=== PATIENT | male | born 1975 | race Caucasian/White ===

== ENCOUNTER 2016-09-15 12:03 | Emergency (ER) | payer MEDICAID ==
[~2016-09-15] VITALS: Ht 165.1 cm; Wt 68.0 kg
[2016-09-15] MEDS ORDERED: TETRACAINE HCL/PF 0.5% UD 2 ML BOTTLE ONE (12:29)
[2016-09-15] MEDS ORDERED: FLUORESCEIN SODIUM OPHTH 1 EA STRIP ONE (12:29)
[2016-09-15] MEDS ORDERED: SOD BORATE/BORIC AC/H2O/NACL 118 ML BOTTLE ONE (12:32)
[2016-09-15] MEDS ORDERED: TETRACAINE HCL 0.5% OPHTALMIC 15 ML BOTTLE OP ONE (13:00)
[2016-09-15] MEDS ORDERED: SOD BORATE/BORIC AC/H2O/NACL 118 ML BOTTLE OP ONE (13:00)
[2016-09-15] MEDS ORDERED: FLUORESCEIN SODIUM OPHTH 1 EA STRIP OP ONE (13:00)
[2016-09-15 14:00] VITALS: BP 12/66
--- NOTE | 2016-09-15 14:00 | NUR ---
Patient discharged to home in stable condition. Written and verbal after care instructions given. Patient verbalizes understanding of instruction.
== END 2016-09-15 14:01 | disposition home or self-care (01) ==
LOC: ER 12:05
DX: S05.01XA Injury of conjunctiva and corneal abrasion without foreign body, right eye, initial encounter (principal); X58.XXXA Exposure to other specified factors, initial encounter; Y92.89 Other specified places as the place of occurrence of the external cause; Y93.89 Activity, other specified; Y99.8 Other external cause status
CPT/HCPCS: A4606; Z7610